=== PATIENT | female | born 1975 | race Caucasian/White ===

== ENCOUNTER 2017-07-04 19:28 | Emergency (ER) | payer OTHER ==
[2017-07-04 19:34] VITALS: BMI 57.7
--- NOTE | 2017-07-04 21:11 | DR.GENAD ---
HPI - PCP Primary Care Physician: NFD - HPI Comment HPI Comment: GETTING WORSE, NO SOB. NO FEVER. NO TRAUMA. - Complaint/Symptoms Chief Complaint Doctors Comments: LEFT KNEE PAIN GOING INTO LEFT HIP TIMES 6 DAYS. Chief Complaint:: PT STATES" I HAVE PAIN FROM MY KNEE UP INTO MY HIP ON THE LEFT SIDE" - Nurses notes reviewed Nurses Notes Review: Yes - Source History Provided: Patient - Mode of Arrival Mode of Arrival: Ambulatory - Timing Onset of Chief Complaint: 06/28/17 Came on: Suddenly - Duration Duration: Constant Duration: Days - Severity Severity: Moderate PMH - PMH Past Medical History: Yes Past Medical History: Diabetes Past Surgical History: Yes Surgical History: Ortho Surgery Past Surgical History Comment: RT KNEE - Family History History of Family Medical Conditions: Yes Family Medical History: Diabetes Mellitus, Cancer, Coronary Artery Disease, Heart Failure, Hypertension - Social History Type of Tobacco Use: None Does any household member use tobacco: No Alcohol Use: Occasionally Do you use any recreational Drugs:: No Lives With: Family Lives Where: Home - infectious screening In the last 2 months have you had wt loss of >10#?: NO Have you had fever, night sweats or hemotysis?: No Have you traveled outside the country in the last 6 months?: No Isolation: Standard ROS - Review of Systems Constitutional: No Symptoms Reported Eyes: No Symptoms Reported ENTM: No Symptoms Reported Respiratoy: No Symptoms Reported Cardiovascular: No Symptoms Reported Gastrointestinal/Abdominal: No Symptoms Reported Genitourinary: No Symptoms Reported Neurological: No Symptoms Reported Musculoskeletal: Left, Knee (PAIN.RADIATING TO LT HIP.) Integumentary: No Symptoms Reported Hematologic/Lymphatic: No Symptoms Reported Endocrine: No Symptoms Reported All Other Systems: Reviewed and Negative PE - Vital Signs Vitals: Temperature 97.9 F Pulse Rate 82 Respiratory Rate 18 Blood Pressure [Left Arm] 168/88 Blood Pressure 183/98 O2 Sat by Pulse Oximetry 99 - General Limitations: No Limitations General Appearance: Alert - Head Head Exam: Normal Inspection - Eyes Eye exam: Normal Appearance - ENT ENT Exam: Normal External Ear Exam TM/Canal Exam: Bilateral Normal Nose Exam: Normal Nose Exam Mouth Exam: Normal Inspection Throat Exam: Normal Inspection - Neck Neck Exam: Trachea Midline - Chest Chest Inspection: Symmetric Chest Wall Rise - Respiratory Respiratory Exam: Normal Lung Sounds Bilat Respiratory Exam: Bilateral Rhonchi, Lower Rhonchi - Cardiovascular Cardiovascular Exam: Regular Rate, Normal Rhythm, Normal Heart Sounds - Abdominal Exam Abdominal Exam: Normal Bowel Sounds, Soft. negative: Tenderness - Extremities Extremities Exam: Tenderness (LEFT KNEE TENDER LATERAL ASPECT. ANTONIO WITH PAIN.) - Back Back Exam: Normal Inspection - Neurologic Neurological Exam: Alert, Oriented X3 - Psychiatric Psychiatric Exam: Normal Affect, Normal Mood - Skin Skin Exam: Normal Color MDM - Additional Information Additional Information Obtained From: Family - Differential Diagnosis Differential Diagnosis: LEFT KNEE ARTHRITIS, BURSITIS, TENDINITIS, SPRAIN Course - Treatment Treatment: SEE ORDERS. - Education/Counseling Education/Counseling: Patient, Family, Education Educated On: Treatment, Diagnosis, Needs for Follow Up ROR - XRAY XRAY Interpreted by: Radiologist XRAY Findings: REPORT DISCUSS WITH PATIENT - Diagnosis Discharge Problem: Knee sprain Qualifiers: Encounter type: initial encounter Involved ligament of knee: unspecified ligament Laterality: left Qualified Code(s): S83.92XA - Sprain of unspecified site of left knee, initial encounter Knee pain, acute Qualifiers: Laterality: left Qualified Code(s): M25.562 - Pain in left knee - Discharge Plan Disposition: 01 HOME, SELF-CARE Condition: Stable Prescriptions: Cyclobenzaprine HCl [FLEXERIL 10 MG *] 10 mg PO TID PRN 20 Days #60 tab PRN Reason: Ibuprofen [MOTRIN TAB 800 MG *] 800 mg PO TID PRN #30 tab PRN Reason: Pain/Inflammation - Follow ups/Referrals Follow ups/Referrals: SELAM BRADLEY [STAFF PHYSICIAN] - 1 day NFD,None [Primary Care Provider] - 1 day - Instructions Instructions: Knee Sprain, Adult, [id number], Musculoskeletal Pain, Knee Pain , Adult, [id number] Additional Instructions: RETURN TO ED IF WORSE.
[2017-07-04] MEDS ORDERED: TORADOL 60 MG VIAL IM ONE (21:30)
[2017-07-04] MEDS ORDERED: NORFLEX INJ IM ONE (21:30)
[2017-07-04] MEDS ORDERED: TORADOL 60 MG VIAL ONE (21:52)
[2017-07-04] MEDS ORDERED: NORFLEX INJ ONE (21:52)
--- NOTE | 2017-07-04 23:27 | RAD ---
Three views of the left knee Indication: Knee pain. Findings: There is mild tricompartmental osteoarthrosis of the left knee. There is a suspected small suprapatellar joint effusion. No fracture dislocation within the left knee. Poorly defined sclerotic lesion within the distal left femoral diaphysis potentially represents an enchondroma or bone infarct however is difficult to characterize given patient body habitus and poor bone detail. Impression: Mild tricompartmental osteoarthrosis of the left knee and suspected small suprapatellar j oint effusion. No acute fracture dislocation. Poorly defined sclerotic lesion within the distal left femoral diaphysis is difficult to characterize given patient body habitus and poor bone detail however likely represents either a bone infarct or e nchondroma. A follow-up radiographic evaluation in -2011 months can be performed for improved bony detail and documentation of stability as clinically warranted. Reported By:
[2017-07-04 23:37] VITALS: BP 168/88
== END 2017-07-04 23:37 | disposition home or self-care (01) ==
LOC: ER 19:28
DX: S83.92XA Sprain of unspecified site of left knee, initial encounter (principal); M25.562 Pain in left knee; Y33.XXXA Other specified events, undetermined intent, initial encounter
CPT/HCPCS: 73560; 96372; 99282; 99283; J1885; J2360